=== PATIENT | female | born 1980 | race Caucasian/White ===

== ENCOUNTER 2024-08-29 09:18 | Emergency (ER) | payer BC, OTHER ==
[~2024-08-29] VITALS: Ht 167.6 cm; Wt 74.8 kg
[~2024-08-29 09:18] MED LIST: AZIT250 PO; CEPH500 PO; CHOL10002 PO; Citalopram HBr20 MG PO; IBUP600 PO; LORA10 PO; Ultram50 MG PO; VALA500 PO
[2024-08-29 09:55] VITALS: BP 207/120
== END 2024-08-29 10:38 | disposition home or self-care (01) ==
LOC: ER 09:18
DX: S86.912A Strain of unspecified muscle(s) and tendon(s) at lower leg level, left leg, initial encounter (principal); X50.9XXA Other and unspecified overexertion or strenuous movements or postures, initial encounter; Y93.02 Activity, running; Y92.828 Other wilderness area as the place of occurrence of the external cause; Z79.899 Other long term (current) drug therapy; Z88.2 Allergy status to sulfonamides; Z88.5 Allergy status to narcotic agent
CPT/HCPCS: 76882; 99283-25